=== PATIENT | male | born 1965 | race Caucasian/White ===

== ENCOUNTER 2020-05-14 21:58 | Inpatient (IN) ==
[2020-05-14] MEDS ORDERED: 0.9 % Sodium Chloride 1,000 ML IVC ONE (22:14)
[2020-05-14 22:36] LABS: Basophils % 0.2 %; Eosinophils % 0.2 %; Hematocrit 38.9 % (37.5-50.1); Hemoglobin 12.9 g/dL (12.9-16.9); Immature Granulocytes % 0.7 % (0-4); Lymphocytes # 0.7 K/mcL (0.6-4.6); Lymphocytes % 16.2 %; Mean Corpuscular HGB Conc 33.2 g/dL (31.6-35.5); Mean Corpuscular Hemoglobin 28.5 pg (28.0-33.3); Mean Corpuscular Volume 85.9 fL (83.0-100.0); Mean Platelet Volume 8.9 fL (9.4-12.4); Monocytes # 0.2 K/mcL (0.0-1.3); Monocytes % 4.7 %; Neutrophils # 3.1 K/mcL (1.6-8.9); Platelet Count 175 K/mcL (140-400); Red Blood Count 4.53 M/mcL (4.19-5.50); Red Cell Distribution Width 13.2 % (11.5-14.5)
[2020-05-14 22:41] LABS: Bacteria,Urine Few per hpf (None-Few); Bilirubin,Urine Negative (Negative); Blood,Urine Moderate (Negative); Clarity,Urine Clear (Clear); Color,Urine Yellow (Yellow); Glucose,Urine (UA) Normal (Normal); Ketones,Urine Negative (Negative); Leukocyte Esterase,Urine Negative (Negative); Mucus,Urine Few per lpf (None-Few); Nitrite,Urine Negative (Negative); Protein,Urine >=300 mg/dL (Neg-Trace); RBC,Urine 0-3 per hpf (0-3); Specific Gravity,Urine > 1.030 (1.010-1.025); Urobilinogen,Urine Normal (Normal); WBC,Urine 0-3 per hpf (0-3)
[2020-05-14 22:44] LABS: INR 1.2; Prothrombin Time 13.8 Seconds (9.4-12.1)
[2020-05-14 22:46] LABS: Activated Partial Thrombo Time 31.5 Seconds (26.0-36.0)
[2020-05-14] MEDS ORDERED: Azithromycin 500 MG in 0.9 % Sodium Chloride 250 ML IVPB ONE (22:51)
[2020-05-14 22:58] LABS: Alanine Aminotransferase 79 Units/L (7-52); Albumin 4.2 g/dL (3.5-5.7); Albumin/Globulin Ratio 1.2 (1.1-2.2); Alkaline Phosphatase 70 Units/L (34-104); Aspartate Amino Transferase 60 Units/L (13-39); BUN/Creatinine Ratio 19 (6-26); Bilirubin,Total 0.6 mg/dL (0.3-1.0); Blood Urea Nitrogen 19 mg/dL (6-20); Calcium 9.3 mg/dL (8.6-10.3); Carbon Dioxide 22 mEq/L (23-29); Chloride 100 mEq/L (98-107); Globulin 3.4 g/dL (2.4-3.5); Glucose 196 mg/dL (70-105); Osmolality,Calculated 288 (280-300); Potassium 3.3 mEq/L (3.5-5.1); Sodium 135 mEq/L (136-145); Total Protein 7.6 g/dL (6.4-8.9); eGFR For African Americans > 60 (> 60); eGFR For Non-African Americans > 60 (> 60)
[2020-05-14] MEDS ORDERED: Isovue-370 500 ML BOTTLE IVP ONE (23:37)
[2020-05-15] MEDS ORDERED: Naloxone 0.4 MG/ML INJ IVP PRN (01:19)
[2020-05-15] MEDS ORDERED: Ondansetron 4 MG/2 ML VIAL IVP PRN (01:19)
[2020-05-15] MEDS ORDERED: Ketorolac 15 MG/ML VIAL IVP PRN (02:20)
[2020-05-15] MEDS ORDERED: GuaiFENesin/Dextromethorphan TABLET PO PRN (04:57)
[2020-05-15] MEDS ORDERED: Melatonin 3 MG TABLET PO PRN (04:58)
[2020-05-15] MEDS ORDERED: 0.9 % Sodium Chloride 1,000 ML IVC ONE (05:14)
[2020-05-15 05:59] LABS: Hematocrit 36.2 % (37.5-50.1); Mean Corpuscular HGB Conc 33.1 g/dL (31.6-35.5); Mean Corpuscular Hemoglobin 29.2 pg (28.0-33.3); Mean Corpuscular Volume 88.1 fL (83.0-100.0); Mean Platelet Volume 8.9 fL (9.4-12.4); Platelet Count 171 K/mcL (140-400); Red Blood Count 4.11 M/mcL (4.19-5.50); Red Cell Distribution Width 13.3 % (11.5-14.5); White Blood Count 2.9 K/mcL (4.3-11.1)
[2020-05-15] MEDS: *HR* Heparin 5,000 UNIT/ML VIAL SQ SCH ×2 (06:13→17:08)
[2020-05-15 06:18] LABS: BUN/Creatinine Ratio 18 (6-26); Blood Urea Nitrogen 18 mg/dL (6-20); Calcium 8.5 mg/dL (8.6-10.3); Carbon Dioxide 23 mEq/L (23-29); Chloride 102 mEq/L (98-107); Glucose 162 mg/dL (70-105); Magnesium 1.7 mg/dL (1.6-2.6); Osmolality,Calculated 285 (280-300); Phosphorous 3.2 mg/dL (2.7-4.5); Potassium 3.2 mEq/L (3.5-5.1); Sodium 135 mEq/L (136-145); eGFR For African Americans > 60 (> 60); eGFR For Non-African Americans > 60 (> 60)
[2020-05-15] MEDS: Ketorolac 30 MG/ML VIAL IVP PRN (06:31)
[2020-05-15] MEDS: Dexamethasone 4 MG/ML VIAL IVP SCH (08:52)
[2020-05-15] MEDS ORDERED: cefTRIAXone 1,000 MG in 0.9 % Sodium Chloride Mini Bag 100 ML IVPB SCH (09:00)
[2020-05-15 09:34] LABS: C-Reactive Protein 109 mg/L (Less than 10); Lactate Dehydrogenase 408 Units/L (140-271)
[2020-05-15 10:18] LABS: Ferritin > 1500 ng/mL (20-250)
[2020-05-15] MEDS: Ipratropium 1 PUFF INHALER IH SCH ×3 (10:49→21:43)
[2020-05-15 13:22] LABS: ABG Base Excess -2 mEq/L (-2 to 3); ABG HCO3 22 mEq/L (21-27); ABG Oxygen Saturation 95 % (95-98); ABG PCO2 32 mmHg (35-45); ABG PH 7.44 pH Units (7.32-7.45); ABG PO2 74 mmHg (85-104); ABG TCO2 23 mEq/L (20-26)
[2020-05-15] MEDS: hydroCHLOROthiazide 25 MG TABLET PO SCH (17:09)
[2020-05-15] MEDS: atenoloL 50 MG TABLET PO SCH (17:09)
[2020-05-15] MEDS: PARoxetine 20 MG TABLET PO SCH (17:10)
[2020-05-15] MEDS ORDERED: 0.9 % Sodium Chloride 500 ML ONE (23:00)
[2020-05-16] MEDS: Acetaminophen 325 MG TABLET PO PRN ×2 (00:27→09:39)
[2020-05-16] MEDS: Ipratropium 1 PUFF INHALER IH SCH ×4 (03:14→21:37)
[2020-05-16] MEDS: *HR* Heparin 5,000 UNIT/ML VIAL SQ SCH ×2 (05:09→21:41)
[2020-05-16 05:57] LABS: Hematocrit 36.9 % (37.5-50.1); Hemoglobin 12.2 g/dL (12.9-16.9); Mean Corpuscular HGB Conc 33.1 g/dL (31.6-35.5); Mean Corpuscular Hemoglobin 29.5 pg (28.0-33.3); Mean Corpuscular Volume 89.1 fL (83.0-100.0); Mean Platelet Volume 9.1 fL (9.4-12.4); Platelet Count 241 K/mcL (140-400); Red Blood Count 4.14 M/mcL (4.19-5.50); Red Cell Distribution Width 13.2 % (11.5-14.5)
[2020-05-16 06:03] LABS: White Blood Count 5.6 K/mcL (4.3-11.1)
[2020-05-16 06:13] LABS: BUN/Creatinine Ratio 19 (6-26); Blood Urea Nitrogen 16 mg/dL (6-20); Calcium 9.1 mg/dL (8.6-10.3); Carbon Dioxide 25 mEq/L (23-29); Chloride 101 mEq/L (98-107); Glucose 171 mg/dL (70-105); Osmolality,Calculated 289 (280-300); Phosphorous 3.1 mg/dL (2.7-4.5); Potassium 3.7 mEq/L (3.5-5.1); Sodium 137 mEq/L (136-145); eGFR For African Americans > 60 (> 60); eGFR For Non-African Americans > 60 (> 60)
[2020-05-16] MEDS ORDERED: atenoloL 50 MG TABLET PO SCH (09:00)
[2020-05-16] MEDS ORDERED: hydroCHLOROthiazide 25 MG TABLET PO SCH (09:00)
[2020-05-16] MEDS ORDERED: PARoxetine 20 MG TABLET PO SCH (09:00)
[2020-05-16] MEDS: Multivit/Ca/Min/Fe/FA 1 TAB TABLET PO SCH (09:17)
[2020-05-16] MEDS: PARoxetine 20 MG TABLET PO SCH (09:17)
[2020-05-16] MEDS: hydroCHLOROthiazide 25 MG TABLET PO SCH (09:17)
[2020-05-16] MEDS: Fluticasone Propionate Nasal 50 MCG/SPRAY BOTTLE NS SCH (09:17)
[2020-05-16] MEDS: Dexamethasone 4 MG/ML VIAL IVP SCH ×2 (09:17→21:41)
[2020-05-16] MEDS: atenoloL 50 MG TABLET PO SCH (09:17)
[2020-05-16] MEDS: cefTRIAXone 1,000 MG in Water for inj. (sterile) 10 ML IVP SCH (09:18)
[2020-05-16] MEDS: Furosemide 40 MG/4 ML VIAL IVP SCH (16:23)
[2020-05-16] MEDS: Azithromycin 500 MG in 0.9 % Sodium Chloride 250 ML IVPB SCH (16:24)
[2020-05-16] MEDS: Ketorolac 30 MG/ML VIAL IVP PRN (21:42)
[2020-05-17] MEDS: Ipratropium 1 PUFF INHALER IH SCH ×4 (03:26→21:13)
[2020-05-17 05:49] LABS: Hemoglobin 12.6 g/dL (12.9-16.9); Mean Corpuscular HGB Conc 32.3 g/dL (31.6-35.5); Mean Corpuscular Hemoglobin 28.2 pg (28.0-33.3); Mean Corpuscular Volume 87.2 fL (83.0-100.0); Mean Platelet Volume 8.8 fL (9.4-12.4); Platelet Count 338 K/mcL (140-400); Red Blood Count 4.47 M/mcL (4.19-5.50); Red Cell Distribution Width 13.2 % (11.5-14.5); White Blood Count 7.5 K/mcL (4.3-11.1)
[2020-05-17] MEDS: *HR* Heparin 5,000 UNIT/ML VIAL SQ SCH ×3 (05:51→21:40)
[2020-05-17 06:13] LABS: BUN/Creatinine Ratio 29 (6-26); Blood Urea Nitrogen 28 mg/dL (6-20); Calcium 9.1 mg/dL (8.6-10.3); Carbon Dioxide 25 mEq/L (23-29); Chloride 101 mEq/L (98-107); Glucose 255 mg/dL (70-105); Lactate Dehydrogenase 364 Units/L (140-271); Magnesium 2.1 mg/dL (1.6-2.6); Osmolality,Calculated 298 (280-300); Phosphorous 4.3 mg/dL (2.7-4.5); Potassium 3.6 mEq/L (3.5-5.1); Sodium 137 mEq/L (136-145); eGFR For African Americans > 60 (> 60); eGFR For Non-African Americans > 60 (> 60)
[2020-05-17 06:37] LABS: Ferritin > 1500 ng/mL (20-250)
[2020-05-17 09:12] LABS: C-Reactive Protein 56 mg/L (Less than 10)
[2020-05-17] MEDS: Multivit/Ca/Min/Fe/FA 1 TAB TABLET PO SCH (09:51)
[2020-05-17] MEDS: atenoloL 50 MG TABLET PO SCH (09:51)
[2020-05-17] MEDS: PARoxetine 20 MG TABLET PO SCH (09:51)
[2020-05-17] MEDS: hydroCHLOROthiazide 25 MG TABLET PO SCH (09:52)
[2020-05-17] MEDS: Furosemide 40 MG/4 ML VIAL IVP SCH (09:52)
[2020-05-17] MEDS: Dexamethasone 4 MG/ML VIAL IVP SCH (09:52)
[2020-05-17] MEDS: cefTRIAXone 1,000 MG in Water for inj. (sterile) 10 ML IVP SCH (09:53)
[2020-05-17] MEDS: Fluticasone Propionate Nasal 50 MCG/SPRAY BOTTLE NS SCH (10:16)
[2020-05-17] MEDS: Azithromycin 500 MG in 0.9 % Sodium Chloride 250 ML IVPB SCH (15:45)
[2020-05-17] MEDS: Acetaminophen 325 MG TABLET PO PRN (17:18)
[2020-05-18] MEDS: Ipratropium 1 PUFF INHALER IH SCH ×2 (03:19→08:53)
[2020-05-18] MEDS: *HR* Heparin 5,000 UNIT/ML VIAL SQ SCH (04:55)
[2020-05-18 05:48] LABS: Hematocrit 39.3 % (37.5-50.1); Mean Corpuscular HGB Conc 33.1 g/dL (31.6-35.5); Mean Corpuscular Hemoglobin 28.9 pg (28.0-33.3); Mean Corpuscular Volume 87.3 fL (83.0-100.0); Mean Platelet Volume 8.7 fL (9.4-12.4); Platelet Count 412 K/mcL (140-400); Red Cell Distribution Width 13.2 % (11.5-14.5); White Blood Count 8.1 K/mcL (4.3-11.1)
[2020-05-18 06:12] LABS: BUN/Creatinine Ratio 32 (6-26); Blood Urea Nitrogen 26 mg/dL (6-20); Calcium 9.4 mg/dL (8.6-10.3); Carbon Dioxide 24 mEq/L (23-29); Chloride 101 mEq/L (98-107); Glucose 200 mg/dL (70-105); Magnesium 2.1 mg/dL (1.6-2.6); Osmolality,Calculated 292 (280-300); Phosphorous 3.2 mg/dL (2.7-4.5); Potassium 3.4 mEq/L (3.5-5.1); Sodium 136 mEq/L (136-145); eGFR For African Americans > 60 (> 60); eGFR For Non-African Americans > 60 (> 60)
[2020-05-18] MEDS: hydroCHLOROthiazide 25 MG TABLET PO SCH (07:56)
[2020-05-18] MEDS: Multivit/Ca/Min/Fe/FA 1 TAB TABLET PO SCH (07:56)
[2020-05-18] MEDS: PARoxetine 20 MG TABLET PO SCH (07:57)
[2020-05-18] MEDS: Furosemide 40 MG/4 ML VIAL IVP SCH (07:57)
[2020-05-18] MEDS: atenoloL 50 MG TABLET PO SCH (07:57)
[2020-05-18] MEDS: cefTRIAXone 1,000 MG in Water for inj. (sterile) 10 ML IVP SCH (07:58)
[2020-05-18] MEDS: Fluticasone Propionate Nasal 50 MCG/SPRAY BOTTLE NS SCH (08:00)
[2020-05-18 08:35] VITALS: BP 117/91
[2020-05-18] MEDS ORDERED: Dexamethasone 4 MG/ML VIAL IVP SCH (09:00)
[2020-05-18] MEDS ORDERED: Azithromycin 250 MG TABLET PO SCH (16:00)
== END 2020-05-18 12:37 | disposition home or self-care (01) | DRG 177 ==
LOC: 2NENU 21:58 → EMEROOARM 21:58 → SUATTDRO 23:48 → 2NENU 05-15 01:12
PROVIDERS: ADMIT Family Medicine; ATTEND Internal Medicine